=== PATIENT | female | born 1925 | race Caucasian/White ===

== ENCOUNTER → 2017-07-15 | Outpatient (CLI) | payer MEDICARE | END | disposition home or self-care (01) | LOC: PCVCCLINIC 15:00 | DX: I10 Essential (primary) hypertension (principal); E78.5 Hyperlipidemia, unspecified; R55 Syncope and collapse; Z95.818 Presence of other cardiac implants and grafts; Z79.899 Other long term (current) drug therapy | CPT/HCPCS: 80061; 93005; G0463 ==